=== PATIENT | male | born 1960 | race Caucasian/White ===

== ENCOUNTER 2018-06-13 04:39 | Emergency (ER) | payer OTHER ==
[~2018-06-13] VITALS: Ht 180.3 cm; Wt 117.9 kg
[2018-06-13 04:39] VITALS: BP_SYST 188
[2018-06-13] MEDS ORDERED: LORazepam 2 MG/ML VIAL (FOR ER USE) IVP ONE (05:15)
[2018-06-13] MEDS ORDERED: MORPHINE 4 MG/ML INJ. SYRINGE IVP ONE ×2 (05:15)
[2018-06-13 08:45] VITALS: BP_SYST 123
== END 2018-06-13 08:45 | disposition home or self-care (01) ==
LOC: SED 04:39
DX: S42.032A Displaced fracture of lateral end of left clavicle, initial encounter for closed fracture (principal); W19.XXXA Unspecified fall, initial encounter; Y93.89 Activity, other specified; Y92.009 Unspecified place in unspecified non-institutional (private) residence as the place of occurrence of the external cause; Y99.8 Other external cause status
CPT/HCPCS: 23650; 73030; 99285; J2060; J2270